=== PATIENT | male | born 1995 | race Caucasian/White ===

== ENCOUNTER 2025-07-29 07:27 | Day surgery (SDC) | payer OTHER, SELFPAY ==
[2025-07-28 11:12] VITALS: BMI 39.1
[2025-07-29] MEDS ORDERED: CEFAZOLIN 2 GM VIAL ONE (08:00)
[2025-07-29] MEDS ORDERED: PROPOFOL 20 ML ONE ×2 (08:36→09:24)
[2025-07-29] MEDS ORDERED: Albuterol 2.5 MG (3 mL) NEB ONE (10:24)
[2025-07-29] MEDS ORDERED: HYDROcodone/Acetaminophen 5/325 mg Tablet ONE (11:14)
== END 2025-07-29 12:08 | disposition home or self-care (01) ==
LOC: CSHSDC 07:27
PROVIDERS: ATTEND Podiatrist Foot & Ankle Surgery
PROC: 0SSL04Z Reposition Left Tarsometatarsal Joint with Internal Fixation Device, Open Approach (ICD-10-PCS; principal; 2025-07-29)
DX: S93.325A Dislocation of tarsometatarsal joint of left foot, initial encounter (principal); J45.20 Mild intermittent asthma, uncomplicated; Z88.6 Allergy status to analgesic agent; Z79.51 Long term (current) use of inhaled steroids; X58.XXXA Exposure to other specified factors, initial encounter; Y93.73 Activity, racquet and hand sports
CPT/HCPCS: J0665; J1100; J2250; J2704; J3010; J7611